=== PATIENT | female | born 1935 | race Caucasian/White ===

== ENCOUNTER 2017-05-26 16:38 | Inpatient (IN) | payer MEDICARE, OTHER, MEDICAID ==
[~2017-05-26] VITALS: Ht 152.4 cm; Wt 54.6 kg
--- NOTE | ~2017-05-26 | WRIGHTHP ---
[place], [place] PATIENT HISTORY AND PHYSICAL EXAM NAME: [facility]EVENSON [facility] [id number] UNIT #: [id number] ROOM: 424 DOCTOR: DUGLAS METCALF MD BIRTHDATE: [birth year] DOS: 05/27/2017 HISTORY OF PRESENT ILLNESS: The patient is 81-year-old. She is a resident of [facility], was brought in with complaints of nausea and emesis. The patient had some pizza before this, but she has multiple emesis to the point that I advised the patient to be sent out to the Emergency Room. She denies having any chest pains, palpitations, does not have any fever or chills. When she arrived, she was also found to be quite hypoxic. This morning, the patient is doing well without any complaints. She also has diuresed nicely with the Lasix that was given. She denies having any chest pains, palpitations, does not have any nausea, any emesis. Does not have any fever or chills. PAST MEDICAL HISTORY: Significant for: 1. Alzheimer's dementia, late onset. 2. COPD. 3. Benign hypertension. 4. History of nicotine abuse. 5. Generalized anxiety disorder. MEDICATIONS: That she is on currently are: Levothyroxine 25 mcg, diltiazem 120, Namenda 28, rivastigmine 13.3 and breathing treatments p.r.n. She used to be on oxygen, but no longer on it. PHYSICAL EXAMINATION: GENERAL: She is awake and alert, pleasant, but answers questions appropriately, but she does have periods of confusion, which is her baseline. VITAL SIGNS: Blood pressure is 123/87, pulse of 95, respirations 20, temperature 97.8. LUNGS: Diminished breath sounds. No rales heard this morning. HEART: Regular. ABDOMEN: Obese, soft, nontender. Bowel sounds present. EXTREMITIES: Without any edema. ASSESSMENT AND PLAN: 1. The patient admitted with nausea, emesis, possibly from viral gastroenteritis. Rapid flu was negative. The patient was given IV fluids in the Emergency Room. 2. Chronic obstructive pulmonary disease with mild exacerbation and resulting in acute hypoxic respiratory failure. As soon as she was brought to the floor, she was given diuretics, breathing treatments and oxygen supplementation. Chest x-ray shows atelectasis bilaterally, could be hiding pneumonia. A CT of the chest is pending. 3. Colitis seen on a CT scan of the abdomen. The patient seems to be doing well this morning. I did place on Flagyl, but since she is no longer having any of GI complaints, I will be starting on a diet today. [place], [place] PATIENT HISTORY AND PHYSICAL EXAM NAME: CLEMENCIA STEVENSON UNIT #: [id number] ROOM: 424 DOCTOR: DUGLAS METCALF MD BIRTHDATE: [birth year] DUGLAS METCALF MD CM:HISPHYS:PATIENT HISTORY AND PHYSICAL EXAMINATION 1 1 DUGLAS METCALF MD 05/27/17 0911 interface
--- NOTE | ~2017-05-26 | DS ---
[place], [place] DISCHARGE SUMMARY NAME: CLEMENCIA STEVENSON UNIT #: [id number] ROOM: 424 DOCTOR: DUGLAS METCALF MD BIRTHDATE: [birth year] DOS: 05/29/2017 DIAGNOSES: 1. Acute exacerbation of chronic obstructive pulmonary disease. 2. Acute hypoxic respiratory failure. 3. Colitis, possible from viral gastroenteritis. 4. Alzheimer dementia, late onset. 5. Benign hypertension. 6. History of nicotine abuse. 7. Generalized anxiety disorder. DISCHARGE MEDICATIONS: Namenda 28 daily, vitamin D 1000 units daily, Exelon 13.3 mg patch daily, milk of mag 30 mL daily p.r.n., Cardizem 120 daily, Symbicort 80 one puff twice a day, DuoNeb q.12h. p.r.n., levothyroxine 25 mcg daily, Tylenol 650 q hours p.r.n., oxygen 2 liters nasal cannula, prednisone, Medrol Dosepak and Flagyl 500 t.i.d. for 5 more days. HOSPITAL COURSE: The patient is 81 years old, presents with severe nausea, emesis, minimal amount of diarrhea. She was hypoxic when she arrived to the emergency room. Please refer H and P. After admission, the patient was placed on IV Flagyl, IV fluids, IV steroids, breathing treatments and oxygen supplementation. Her symptoms have all resolved. So today, the patient will be discharged back to the shelter. She will be followed up as an outpatient. DUGLAS METCALF MD CM:DISCHARG [phone] DUGLAS METCALF MD 05/29/17 0902 interface
--- NOTE | ~2017-05-26 | PR ---
[place], [place] PROGRESS NOTE NAME: CLEMENCIA STEVENSON UNIT #: [id number] ROOM: 424 DOCTOR: DUGLAS METCALF MD BIRTHDATE: [birth year] DOS: SUBJECTIVE: The patient is resting comfortably, does not have any complaints. OBJECTIVE: VITAL SIGNS: Graphic trend shows blood pressure of 119/68, pulse 103, respirations 18, temperature 98.0. LUNGS: Clear. HEART: Regular. ABDOMEN: Soft. EXTREMITIES: Without any edema. ASSESSMENT AND PLAN: 1. Acute colitis, on IV antibiotics. The patient is no longer symptomatic. There is resolution of nausea and emesis and abdominal pain. 2. Acute hypoxic respiratory failure from underlying chronic obstructive pulmonary disease exacerbation. The patient has been placed on steroids and antibiotics. The plan is to discharge her to home to [place] tomorrow. DUGLAS METCALF MD CM:PNTRANS [id number] DUGLAS METCALF MD 05/28/17 0952 interface
--- NOTE | ~2017-05-26 | PR ---
[place], [place] PROGRESS NOTE NAME: CLEMENCIA STEVENSON UNIT #: [id number] ROOM: 424 DOCTOR: DUGLAS METCALF MD BIRTHDATE: [birth year] DOS: SUBJECTIVE: The patient is doing fine. She does not have any complaints. She is eating well. She is no longer hypoxic. OBJECTIVE: VITAL SIGNS: Blood pressure is 99/62, pulse of 99, respirations 18, temperature 98.5. LUNGS: Clear. HEART: Regular. ABDOMEN: Soft, scaphoid, nontender. EXTREMITIES: Without any edema. LABORATORY DATA: Echocardiogram showed normal LV function, ejection fraction of 70%, grade 1 diastolic dysfunction, trace mitral regurg. ASSESSMENT AND PLAN: 1. Acute respiratory failure, hypoxic. The patient is stable. 2. Chronic obstructive pulmonary disease with mild exacerbation, improved. 3. Abdominal pain with nausea, emesis, possibly from colitis, on Flagyl. She is asymptomatic now. We plan to discharge her back to the half-way. DUGLAS METCALF MD CM:PNTRANS [id number] DUGLAS METCALF MD 05/29/17 0932 interface
[~2017-05-26 16:38] MED LIST: ALBUTEROL 3 ML 33 ML NEB; ATARAX,VISTARIL50 MG PO; ATIVAN0.5 MG PO; B12,B-12,B 12500 MC1 PO; BACTRIM DS 8001 TA1 PO; BIAXIN500 MG PO; CIPRO500 MG PO; DEPAKOTE ER500 MG PO; DUONEB 3 MG/3 ML3 M1 NEB; Depakote Sprin125 MG PO; EXELON13.3 MG/21 TD; EXELON3 MG PO; EXELON4.6 MG/24 T; HYDROXYZINE PAM25 M1 PO; INDERAL LA60 M1 PO; K-TAB10 MEQ PO; LEVAQUIN250 M1 PO; MAPAP325 MG PO; MEDROL DOSEPAK4 MG PO; MELOXICAM15 MG PO; METHIMAZOLE10 MG PO; METHIMAZOLE5 M1 PO; MIRTAZAPINE15 M2 PO; NAMENDA XR28 M1 PO; NAMENDA-7 PO; NAMENDA10 MG PO; PAXIL10 MG PO; PREDNISONE5 MG PO; PROVENTIL0.09 MG/AC IH; PYRIDIUM200 MG PO; REMERON15 M2 PO; SEROQUEL50 MG PO; TAPAZOLE5 MG PO; TRAMADOL HCL50 MG PO; VENTOLIN 02.5 MG/3 M INH; VISTARIL25 MG PO; VITAMIN B-12500 MC2 PO; VITAMIN B121000 MC1 PO; VITAMIN D31000 UNIT PO
[2017-05-26 16:58] VITALS: BP 163/89
[2017-05-26 17:22] LABS: BASO % 0.5 % (0.0-1.0); HEMATOCRIT 42.7 % (37.0-47.0); HEMOGLOBIN 13.6 g/dl (12.0-16.0); LYMPH # 0.7 10*3/uL (1.3-4.4); MEAN CORPUSCULAR HGB 28.3 pg (27.0-31.0); MEAN CORPUSCULAR HGB CONC 31.9 g/dl (33.0-37.0); MEAN PLATELET VOLUME 9.7 fl (9.6-12.3); MONO # 0.2 10*3/uL (0.1-1.0); MONO % 2.7 % (3.0-9.0); NEUT % 87.3 % (47.0-73.0); PLATELET COUNT AUTOMATED 288 10*3/uL (130-400); RED CELL DISTRI WIDTH 13.7 % (0-14.5)
[2017-05-26 17:34] LABS: ACT PARTIAL THROMBO TIME 22.7 SECONDS (20.8-31.5)
[2017-05-26 17:41] LABS: ALBUMIN 3.5 gm/dl (3.1-4.5); ALKALINE PHOSPHATASE 94 U/L (45-117); BUN 11 mg/dl (7-24); CHLORIDE 105 mmol/L (98-107); CREATININE 0.84 mg/dL (0.55-1.02); LIPASE 258 U/L (73-393); SGOT/AST 20 IU/L (3-35); SGPT/ALT 19 U/L (12-78); SODIUM 141 mmol/L (136-145); TOTAL PROTEIN 7.9 gm/dL (6.4-8.2)
[2017-05-26 17:44] LABS: TROPONIN I < 0.015 ng/ml (<0.045)
[2017-05-26 19:54] VITALS: BP 142/74
[2017-05-26 19:54] LABS: BILIRUBIN NEGATIVE (NEGATIVE); BLOOD NEGATIVE (NEGATIVE); CLARITY CLEAR (CLEAR); COLOR YELLOW (YELLOW); GLUCOSE NEGATIVE (NEGATIVE); KETONE 2+ (NEGATIVE); LEUKO ESTERASE NEGATIVE (NEGATIVE); NITRITE NEGATIVE (NEGATIVE); SPECIFIC GRAVITY <= 1.005 (1.005-1.030); UROBILINOGEN 0.2 E.U./dl (0.2-1.0)
[2017-05-26 20:11] LABS: BACTERIA 1+; EPITHELIAL CELLS 0-2; RBC 0-2 rbc/hpf (0-2)
[2017-05-26 22:43] VITALS: BP 159/75
[2017-05-26] MEDS ORDERED: MILK OF MA400 MG/51 PO (23:11)
[2017-05-26] MEDS ORDERED: CARDIZEM CD120 M2 PO (23:12)
[2017-05-26] MEDS ORDERED: SYMB80 INH (23:13)
[2017-05-26] MEDS ORDERED: DUONEB 3 MG/3 ML3 M1 INH (23:15)
[2017-05-26] MEDS ORDERED: SYNTHROID25 MCG PO (23:16)
[2017-05-26] MEDS ORDERED: TYLENOL325 M1 PO (23:18)
[2017-05-26 23:45] VITALS: BP 159/75
[2017-05-27 00:50] VITALS: BP 130/86
[2017-05-27 08:00] VITALS: BP 123/87
[2017-05-27 12:00] VITALS: BP 135/64
[2017-05-27 16:00] VITALS: BP 116/78
[2017-05-27 20:00] VITALS: BP 122/71
[2017-05-28] VITALS: BP 112/57
[2017-05-28 08:00] VITALS: BP 119/68
[2017-05-28 12:00] VITALS: BP 136/62
[2017-05-28 16:00] VITALS: BP 113/56
[2017-05-28 20:00] VITALS: BP 121/66
[2017-05-29] VITALS: BP 99/62
[2017-05-29 08:00] VITALS: BP 124/64
[2017-05-29 12:00] VITALS: BP 136/56
== END 2017-05-29 14:35 | DRG 391 ==
LOC: ED 16:38 → EDHOLD 21:30 → 4E 21:30
PROVIDERS: Emergency Medicine
DX: A08.4 Viral intestinal infection, unspecified (principal); J96.01 Acute respiratory failure with hypoxia; J44.1 Chronic obstructive pulmonary disease with (acute) exacerbation; G30.9 Alzheimer's disease, unspecified; F02.80 Dementia in other diseases classified elsewhere, unspecified severity, without behavioral disturbance, psychotic disturbance, mood disturbance, and anxiety; Z66 Do not resuscitate; Z51.5 Encounter for palliative care; I10 Essential (primary) hypertension; F41.1 Generalized anxiety disorder; M19.90 Unspecified osteoarthritis, unspecified site; K21.9 Gastro-esophageal reflux disease without esophagitis; Z90.49 Acquired absence of other specified parts of digestive tract; Z87.891 Personal history of nicotine dependence; Z79.899 Other long term (current) drug therapy; Z82.3 Family history of stroke; Z98.49 Cataract extraction status, unspecified eye

== ENCOUNTER 2017-11-24 16:50 | Inpatient (IN) | payer MEDICARE, OTHER, MEDICAID ==
[~2017-11-24] VITALS: Ht 152 cm; Wt 57.2 kg
--- NOTE | ~2017-11-24 | EKG ---
[place], [place] ELECTROCARDIOGRAM REPORT NAME: CLEMENCIA STEVENSON UNIT #: [id number] ROOM: 408 DOCTOR: LEONARD DRAFT REPORT BIRTHDATE: [birth year] [facility] Test Date: 2017-11-24 Test Time: 17:31:26 Pat Name: CLEMENCIA STEVENSON Department: Room: 408 Gender: F Customs Director: : 1935 Requested By: JA MCKINNON Order Number: [id number] Reading MD: Arelis Prasad MD Measurements Intervals [place] Rate: 59 P: -9 VA: 145 QRS: 25 QRSD: 76 T: 40 QT: 435 QTc: 431 Interpretive Statements Sinus rhythm Atrial premature complex Electronically Signed On 11-25-2017 11:12:10 PDT by Arelis Prasad MD CM:EKGRPT:ELECTROCARDIOGRAM REPORT [id number] JA MCKINNON EPIPHANY DRAFT REPORT JA MCKINNON
--- NOTE | ~2017-11-24 | PR ---
[place], [place] PROGRESS NOTE [id number] UN[facility] #: [id number] ROOM: 408 DOCTOR: RADHA LLOYD MD,JOAQUIN BIRTHDATE: [birth year] DOS: 11/26/2017 SUBJECTIVE: She was noted comfortable, resting without any acute distress. Denies symptoms of acute chest pain. The patient denied any symptoms of abdominal pain, nausea, vomiting at the present time. Denies symptoms of hemoptysis. REVIEW OF SYSTEMS: Very limited because of history of dementia. OBJECTIVE: VITAL SIGNS: For the patient which has been recorded showed normal temperature, respiratory rate 20, heart rate 70, blood pressure 120/50-120/59, pulse oxygen saturation noted as 98% saturation on 2 liter nasal cannula. HEAD, EYES, EARS, NOSE, AND THROAT: Examination shows head was atraumatic. Eyes nonicterus. NECK: Supple. CARDIOVASCULAR SYSTEM: S1, S2 is audible. LUNGS: The patient was noted without any wheezing or crackles at present time. ABDOMEN: Soft, nontender. Bowel sounds present. EXTREMITIES: The patient was noted without any acute edema. SKIN: Visible skin. No lesions or rashes. MUSCULOSKELETAL: Noted without any acute deformities. CENTRAL NERVOUS SYSTEM: There were no focal deficits. LABORATORY DATA: CT scan of the chest that was done yesterday. CT of the chest noted without any evidence of acute pulmonary embolism. Small area of atelectasis noted right lower lobe as well as the findings of a 3.5 mm nodule in the right lower lobe that appears to be noted stable since CT scan in 2004. Scattered areas of patchy infiltration most likely would be considered appeared to be of pulmonary fibrosis; however, the acute infiltration in the right lower lobe cannot be completely excluded. IMPRESSION: 1. The patient will be currently admitted to the hospital. The patient was noted with findings of chest pain. Ultrasound of the gallbladder was done, which shows evidence of cholelithiasis without evidence of acute cholecystitis. Possibility of acute pneumonia in the right lower lobe cannot be completely excluded. 2. 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 3. History of dementia. PLAN OF MANAGEMENT: Discontinue the broad-spectrum intravenous antibiotics, replace it with the usual antibiotics for the community-acquired infection with use of the Levaquin should suffice. Other plan of management to be continued monitoring the chest closely. Pain management is already addressed and done by the primary care attending. Usual care, other supportive therapy, plan of management and care plan. Additional treatment changes will be recommended based on progression of the illness. [place], [place] PROGRESS NOTE NAME: CLEMENCIA STEVENSON UNIT #: [id number] ROOM: [facility] DOCTOR: JOAQUIN DE LA TORRE MD BIRTHDATE: [birth year] JOAQUIN GARCIA MD CM:PNTRANS [id number] JOAQUIN LLOYD MD 11/26/17 1612 interface
--- NOTE | ~2017-11-24 | CON ---
[place], [place] REPORT OF CONSULTATION NAME: CLEMENCIA STEVENSON UNIT #: [id number] ROOM: 408 DOCTOR: RADHA LLOYD MDJOAQUIN BIRTHDATE: [birth year] DOS: 11/25/2017 PULMONARY CONSULTATION, EVALUATION, AND MANAGEMENT REASON FOR CONSULTATION: To assess the patient for reported acute pneumonia. The history for this patient was noted quite limited at this time and cannot be accurately assessed, possible consideration for dementia. The history of the patient obtained is the review of the medical records for this hospitalization by the other physician, ER assessment and the nursing staff. HISTORY OF PRESENT ILLNESS: This is an 82-year-old female patient, who has been brought to the hospital from the [facility]. The patient has been noted with symptoms of increased shortness breath at about 1430 hours. The patient was given DuoNeb treatment and another treatment was given en route by the EMS. The patient stated symptoms of shortness breath, which has been still present at this time. She does have symptoms of mild cough, but stating she has been noted with pain under the ribcage. The pain has been described nonresolving. The pain was described majorly in the right lower portion of the chest than the left lower chest. The patient also received the Solu-Medrol by the EMS as well. Currently, the patient has been sitting comfortably on the bed at this time. Denies any symptoms of wheezing. REVIEW OF SYSTEMS: The review of the systems for the patient cannot be accurately completed because the patient unable to give any history accurately as she has been asked a question, unable to provide me a reasonable answers to those questions. PAST MEDICAL HISTORY: 1. Noted history of dementia. 2. Essential hypertension. 3. COPD. 4. Hypothyroidism. PAST SURGICAL HISTORY: 1. Appendectomy. 2. Cataract extraction and lens implantation. SOCIAL HISTORY: The patient is stating she is . She denies any tobacco, alcohol or illicit drug use. FAMILY HISTORY: Reported in the past as father 65 years complication of stroke. Mother is with unknown medical illnesses. MEDICATIONS: Per the fpc were reported use of Namenda, vitamin D, Exelon patch, Cardizem-CD, Symbicort, DuoNeb, Spiriva, levothyroxine, and other p.r.n. medications. DRUG ALLERGIES: Reported as no known drug allergies. [place], [place] REPORT OF CONSULTATION NAME: CLEMENCIA STEVENSON UNIT #: [id number] ROOM: 408 DOCTOR: RADHA LLOYD MD,JOAQUIN BIRTHDATE: [birth year] PHYSICAL EXAMINATION: GENERAL: This is an 82-year-old female patient, who has been currently noted to be awake and alert, sitting on the bed this morning. Height for the patient recorded as 5 feet, weight of 126 pounds, BMI 24. VITAL SIGNS: Normal temperature, respiratory rate of 20-14, heart rate of 72-80, blood pressure 119/59, 136/61. Pulse oxygen saturation of the patient recorded on 2 liters 95% saturation. On admission on 8 liters oxygen supplementation simple face mask was 100% saturation. HEENT: Examination shows head was atraumatic. Eyes nonicterus. NECK: Supple. CARDIOVASCULAR: S1, S2 was audible. LUNGS: The patient was noted essentially somewhat decreased breath sounds bilaterally. There were no wheezing or crackles heard. ABDOMEN: Soft, nontender. Bowel sounds present. EXTREMITIES: Without any acute edema. VISIBLE SKIN: No lesions or rashes. LABORATORY DATA: CBC of the patient on 11/24/2017 was noted as normal CBC. CMP of the patient was noted at 11/24/2017, normal BUN and creatinine. Troponin first set was normal yesterday. Lactic acid noted as normal. Chest x-ray that was done 2-view in the Emergency Room was noted with a small area of atelectasis in the right middle and right lower lobe and the lingula cannot be excluded. There were no gross area of pulmonary infiltration. The patient had a CT scan of the abdomen and pelvis, which was done for this patient as well for assessment right flank pain reported in the Emergency Room. The findings of the patient reported by the radiologist as somewhat limited examination performed without contrast, [id number], hiatal hernia was noted with a small basilar areas of atelectasis without any acute infiltration. CBC of the patient this morning, still noted as normal. Urine culture was noted as negative. CMP for the patient was noted as normal this morning. IMPRESSION: 1. The patient will be currently admitted to the hospital. The patient with symptoms of shortness of breath, presumed diagnosis of chronic obstructive pulmonary disease, but there was no wheezing noted at the present time. She has been given Solu-Medrol, bronchodilator and other treatment. 2. History of chronic dementia, hypothyroidism and essential hypertension reported. PLAN OF TREATMENT: The symptoms of the patient at this time cannot be explained fully with the patient's current history and physical examination. I will be ordering CT scan of the chest for this patient to rule out acute pulmonary embolism as one of the differential diagnosis. In the meantime, continue with the patient's current plan of management at this time as started for this patient presumed COPD exacerbation. Other supportive therapy, plan of management for the patient as well. Additional treatment changes will be ordered based on the progression of her illness. There was no evidence of acute pneumonia was noted. [place], [place] REPORT OF CONSULTATION NAME: CLEMENCIA STEVENSON UNIT #: [id number] ROOM: [facility] DOCTOR: JOAQUIN DE LA TORRE MD BIRTHDATE: [birth year] JOAQUIN GARCIA MD CM:CONSTR:REPORT OF CONSULTATION 1158 12/06/17 0923 interface
--- NOTE | ~2017-11-24 | DS ---
[place], [place] DISCHARGE SUMMARY NAME: CLEMENCIA STEVENSON [facility] #: [id number] UNIT #: [id number] ROOM: 408 DOCTOR: JOY DEGROOT MD BIRTHDATE: [birth year] DOS: 11/26/2017 DISCHARGE DIAGNOSES: 1. Gallstone pancreatitis, resolved. 2. Cholelithiasis and choledocholithiasis. The patient refused surgery. 3. Acute right and left upper quadrant pains, resolved. 4. Right upper lobe pneumonia, treated. 5. Late onset Alzheimer's type dementia. 6. Centrilobular emphysema. 7. Benign essential hypertension. 8. Chronic constipation. 9. Adult failure to thrive and old age. 10. Hypothyroidism. 11. 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 12. History of nicotine smoke dependence. HOSPITAL COURSE: The patient presented to the Emergency Department with severe right and left upper quadrant pains, nausea and she was found to have right upper lung pneumonia with chest x-ray. The patient's lipase level was elevated and she was kept n.p.o. for acute pancreatitis. Ultrasound of the gallbladder showed cholelithiasis. The patient apparently had choledocholithiasis, which resulted in elevation of lipase level and pancreatitis. This was followed by elevation of liver enzymes. The patient is prone to having recurrent choledocholithiasis and she was asked to get a cholecystectomy, but the patient had refused. It has been explained to the patient about the complications of choledocholithiasis and gallstones and she understands. The patient was also seen by Dr. Funes, the surgeon and recommended surgery. The patient appears to be competent to make decisions in relation to her health and she lives at home. Right upper lung pneumonia, treated with antibiotics. Dr. Ruiz, the junior media buyer was consulted and helped with the patient's management. Acute exacerbation of COPD, treated with bronchodilators and corticosteroids, improved. Late onset Alzheimer's type dementia. The patient is quite alert and oriented. Benign essential hypertension, treated and controlled. Chronic constipation, being treated. The patient is moving her bowels. Adult failure to thrive and old age. The patient worked with Physical Therapy. Hypothyroidism, replaced with levothyroxine. The patient wants to be discharged to home against medical advice. I will let her eat food and water her until 6:00 p.m. to make sure that she is tolerating diet before she goes home. Otherwise, I would have at least kept her until [place], [place] DISCHARGE SUMMARY NAME: CLEMENCIA STEVENSON UNIT #: [id number] ROOM: 408 DOCTOR: JOY DEGROOT MD BIRTHDATE: [birth year] tomorrow and also I am recommending that she should undergo cholecystectomy. LABORATORY DATA: CT angiogram negative for pulmonary embolism, old stable nodule. No leukocytosis. Ultrasound of the gallbladder is showing cholelithiasis. DISCHARGE MANAGEMENT: Levothyroxine 25 mcg daily, Colace 100 mg b.i.d., lactulose 10 grams before meals, MiraLax 17 grams daily, memantine 10 mg b.i.d., rivastigmine 13.3 mg daily, sennoside 8.6 mg daily, polyethylene eyedrops 5 times daily as needed to both eyes, diltiazem CD 120 mg daily, Dulera twice a day. FOLLOWUP: With her PCP this week. JOY DEGROOT MD CM:SANDER [id number] JOY DEGROOT MD 11/26/172135 interface
--- NOTE | ~2017-11-24 | WRIGHTHP ---
[place], [place] PATIENT HISTORY AND PHYSICAL EXAM [id number] UNIT #: [id number] ROOM: 408 DOCTOR: JOY DEGROOT MD BIRTHDATE: [birth year] DOS: 11/24/2017 HISTORY OF PRESENT ILLNESS: The patient is an 82-year-old female with a past medical history of: 1. COPD. 2. Late onset Alzheimer's type dementia. 3. Benign essential hypertension. 4. History of nicotine smoke dependence. 5. Generalized anxiety disorder. 6. History of moderate to severe depression, recurrent. The patient [facility] with complaints of increased shortness of breath and right and left upper quadrant abdominal pains with nausea. After initial treatment with Solu-Medrol, patient was found to have pneumonic lung infiltrates and elevation of lipase compatible with acute pancreatitis and she was recommended for admission and further management. Noncontrast CT of the abdomen and pelvis were normal. After admission and being kept n.p.o., patient is feeling much better, her abdominal pains and nausea has resolved. No chest pains. Her breathing has improved. No dizziness or fainting episodes. REVIEW OF SYSTEMS: LUNGS: Increasing shortness of breath. GASTROINTESTINAL: No nausea or vomiting. CARDIOVASCULAR SYSTEM: No chest pains or palpitations. ALLERGIES: No known drug allergies. FAMILY HISTORY: Noncontributory. SOCIAL HISTORY: History of nicotine smoke dependence. Denies any alcohol or drug abuse. HOME MEDICATIONS: MiraLax, diltiazem, Symbicort, Tylenol, vitamin D, Colace, lactulose, levothyroxine, rivastigmine, Spiriva, Senokot, memantine, sennosides, DuoNeb. ALLERGIES: No known drug allergies. PHYSICAL EXAMINATION: GENERAL: Alert, oriented times 3. HEENT AND NECK: Extraocular movements are intact. Sclerae are anicteric. Oral mucosa is moist and clean. No obvious facial weakness. Neck is supple without any lymphadenopathy. No thyromegaly. No JVD. No carotid arterial bruits. LUNGS: Clear to auscultation. No wheezing. No rhonchi. CARDIOVASCULAR SYSTEM: Heart rate is regular in rate and rhythm. S1 and S2 normally audible. No significant murmur or any other abnormal cardiac sounds. ABDOMEN: Soft, nontender. No obvious organomegaly. Bowel sounds are present. No obvious herniation. Some epigastric discomfort on deep palpation. EXTREMITIES: Without significant cyanosis or edema. Warm to touch. [place], [place] PATIENT HISTORY AND PHYSICAL EXAM NAME: CLEMENCIA STEVENSON UNIT #: [id number] ROOM: [facility] DOCTOR: JOY DEGROOT MD BIRTHDATE: [birth year] CENTRAL NERVOUS SYSTEM: Alert and oriented x 3. Cranial nerves II-XII are intact. Speech is normal. The patient is able to move all extremities. Normal muscle strength. Deep tendon reflexes are equal on both sides. Plantars were downgoing. LABORATORY DATA: Elevation of AST and ALT to 319 and 268. Lipase has improved to 438 from 3200 yesterday. IMPRESSION: 1. The patient with acute pancreatitis with upper abdominal pain, right upper quadrant and left upper quadrant pains with epigastric tenderness, possibly from choledocholithiasis. I am ordering an ultrasound of the gallbladder. Lipase has improved, but now liver enzymes have increased. Dr. Vallejo, the sandwich counter attendant, is on consult. 2. Right upper lung pneumonia, being treated with antibiotics. Dr. Ruiz has been consulted for opinion and help with management. 3. Late onset Alzheimer's type dementia. I will continue rivastigmine and memantine. 4. Centrilobular emphysema, treated with bronchodilators. 5. Benign essential hypertension. The patient remains on Cardizem. Blood pressures are being monitored. 6. Chronic constipation, treated with multiple medications including Colace, lactulose, MiraLax, sennosides, which have all been continued. 7. Adult failure to thrive and old age. The patient started on physical therapy. 8. Hypothyroidism, replaced with levothyroxine. JOY DEGROOT MD CM:HISPHYS:PATIENT HISTORY AND PHYSICAL EXAMINATION 1110 1219 JOY DEGROOT MD 11/25/17 1435 interface
[2017-11-24 16:50] VITALS: BP 140/56
[~2017-11-24 16:50] MED LIST changes: +CARDIZEM CD120 M2 PO; +DUONEB 3 MG/3 ML3 M1 INH; +MILK OF MA400 MG/51 PO; +SYMB80 INH; +SYNTHROID25 MCG PO; +TYLENOL325 M1 PO
[2017-11-24] MEDS ORDERED: SENNA-LAX8.6 MG PO (17:09)
[2017-11-24] MEDS ORDERED: ARTIFICIAL TEA1 EACH OP (17:11)
[2017-11-24] MEDS ORDERED: DOCUSATE SODIU100 M2 PO (17:12)
[2017-11-24] MEDS ORDERED: SPIRIVA18 MCG PO (17:12)
[2017-11-24 17:39] LABS: BASO % 0.3 % (0.0-1.0); EOS # 0.1 10*3/uL (0.0-0.4); EOS % 1.4 % (1.0-4.0); HEMATOCRIT 45.1 % (37.0-47.0); HEMOGLOBIN 14.2 g/dl (12.0-16.0); LYMPH # 2.3 10*3/uL (1.3-4.4); LYMPH % 25.9 % (27.0-41.0); MEAN CELL VOLUME 91.5 fl (81.0-99.0); MEAN CORPUSCULAR HGB 28.8 pg (27.0-31.0); MEAN CORPUSCULAR HGB CONC 31.5 g/dl (33.0-37.0); MEAN PLATELET VOLUME 9.8 fl (9.6-12.3); MONO # 0.6 10*3/uL (0.1-1.0); MONO % 6.5 % (3.0-9.0); NEUT # 5.8 10*3/uL (2.3-7.9); NEUT % 65.6 % (47.0-73.0); PLATELET COUNT AUTOMATED 222 10*3/uL (130-400); RED BLOOD COUNT 4.93 10*6/uL (4.10-5.10); RED CELL DISTRI WIDTH 14.2 % (0-14.5); WHITE BLOOD COUNT 8.8 10*3/uL (4.8-10.8)
[2017-11-24 17:57] LABS: ALBUMIN 3.7 gm/dl (3.1-4.5); ALKALINE PHOSPHATASE 72 U/L (45-117); BUN 12 mg/dl (7-24); CHLORIDE 107 mmol/L (98-107); CREATININE 1.01 mg/dL (0.55-1.02); POTASSIUM 3.8 mmol/L (3.5-5.1); SGOT/AST 26 IU/L (3-35); SGPT/ALT 21 U/L (12-78); SODIUM 144 mmol/L (136-145); TOTAL PROTEIN 7.7 gm/dL (6.4-8.2)
[2017-11-24 18:00] LABS: LIPASE 3188 U/L (73-393); TROPONIN I < 0.015 ng/ml (<0.045)
[2017-11-24 18:36] LABS: BILIRUBIN NEGATIVE (NEGATIVE); BLOOD NEGATIVE (NEGATIVE); CLARITY CLEAR (CLEAR); COLOR YELLOW (YELLOW); GLUCOSE NEGATIVE (NEGATIVE); KETONE 1+ (NEGATIVE); LEUKO ESTERASE NEGATIVE (NEGATIVE); NITRITE NEGATIVE (NEGATIVE); SPECIFIC GRAVITY >= 1.030 (1.005-1.030); UROBILINOGEN 0.2 E.U./dl (0.2-1.0)
[2017-11-24 18:44] LABS: RBC 0-2 rbc/hpf (0-2)
[2017-11-24 18:45] LABS: BACTERIA 2+; MUCOUS TRACE
[2017-11-24 20:06] VITALS: BP 149/47
[2017-11-24 21:00] VITALS: BP 136/64
[2017-11-24] MEDS ORDERED: ENULOSE10 GM/151 PO (21:38)
[2017-11-24] MEDS ORDERED: MIRALAX17 GM PO (21:39)
[2017-11-25] VITALS: BP 106/63
[2017-11-25 06:47] LABS: HEMATOCRIT 39.6 % (37.0-47.0); HEMOGLOBIN 12.3 g/dl (12.0-16.0); LYMPH # 0.5 10*3/uL (1.3-4.4); LYMPH % 8.3 % (27.0-41.0); MEAN CELL VOLUME 92.1 fl (81.0-99.0); MEAN CORPUSCULAR HGB 28.6 pg (27.0-31.0); MEAN CORPUSCULAR HGB CONC 31.1 g/dl (33.0-37.0); MEAN PLATELET VOLUME 10.1 fl (9.6-12.3); MONO # 0.3 10*3/uL (0.1-1.0); MONO % 5.6 % (3.0-9.0); NEUT # 5.1 10*3/uL (2.3-7.9); NEUT % 85.8 % (47.0-73.0); PLATELET COUNT AUTOMATED 182 10*3/uL (130-400); RED CELL DISTRI WIDTH 14.2 % (0-14.5); WHITE BLOOD COUNT 5.9 10*3/uL (4.8-10.8)
[2017-11-25 07:30] LABS: CHLORIDE 110 mmol/L (98-107); POTASSIUM 4.4 mmol/L (3.5-5.1); SODIUM 142 mmol/L (136-145)
[2017-11-25 07:39] LABS: ALKALINE PHOSPHATASE 77 U/L (45-117); BUN 11 mg/dl (7-24); CREATININE 0.97 mg/dL (0.55-1.02); LIPASE 438 U/L (73-393); SGOT/AST 319 IU/L (3-35); SGPT/ALT 268 U/L (12-78); TOTAL PROTEIN 6.5 gm/dL (6.4-8.2)
[2017-11-25 08:00] VITALS: BP 119/59
[2017-11-25 12:00] VITALS: BP 126/61
[2017-11-25 15:53] VITALS: BP 129/63
[2017-11-25 20:00] VITALS: BP 134/62
[2017-11-26] VITALS: BP 121/59
[2017-11-26 06:44] LABS: BASO # 0.1 10*3/uL (0.0-0.1); BASO % 0.6 % (0.0-1.0); EOS # 0.1 10*3/uL (0.0-0.4); EOS % 1.1 % (1.0-4.0); HEMATOCRIT 36.1 % (37.0-47.0); HEMOGLOBIN 11.4 g/dl (12.0-16.0); LYMPH # 0.9 10*3/uL (1.3-4.4); LYMPH % 9.4 % (27.0-41.0); MEAN CORPUSCULAR HGB 28.4 pg (27.0-31.0); MEAN CORPUSCULAR HGB CONC 31.6 g/dl (33.0-37.0); MEAN PLATELET VOLUME 10.3 fl (9.6-12.3); MONO # 0.8 10*3/uL (0.1-1.0); MONO % 7.8 % (3.0-9.0); NEUT # 7.9 10*3/uL (2.3-7.9); NEUT % 80.7 % (47.0-73.0); PLATELET COUNT AUTOMATED 188 10*3/uL (130-400); RED BLOOD COUNT 4.01 10*6/uL (4.10-5.10); RED CELL DISTRI WIDTH 14.4 % (0-14.5); WHITE BLOOD COUNT 9.8 10*3/uL (4.8-10.8)
[2017-11-26 08:00] VITALS: BP 124/52
[2017-11-26 12:00] VITALS: BP 116/77; BP 140/88
[2017-11-26 16:00] VITALS: BP 141/70
[2017-12-17] MEDS ORDERED: Ipratropium Brom3 ML INH (12:24)
[2017-12-17] MEDS ORDERED: SENNA LAX8.6 M1 PO (12:25)
[2017-12-17] MEDS ORDERED: VITAMIN D31000 UNI1 PO (12:26)
[2017-12-17] MEDS ORDERED: SPIRIVA -- 3018 MCG INH (12:26)
[2017-12-17] MEDS ORDERED: RIVASTIGMINE1 EAC2 T (12:27)
[2017-12-17] MEDS ORDERED: GLYCOLAX119 GM PO (12:28)
== END 2017-11-26 19:15 | DRG 438 ==
LOC: ED 16:50 → EDHOLD 19:40 → 4E 19:40
PROVIDERS: Internal Medicine; Nurse Practitioner Family
DX: K85.10 Biliary acute pancreatitis without necrosis or infection (principal); J18.1 Lobar pneumonia, unspecified organism; F33.2 Major depressive disorder, recurrent severe without psychotic features; J44.0 Chronic obstructive pulmonary disease with (acute) lower respiratory infection; J44.1 Chronic obstructive pulmonary disease with (acute) exacerbation; G30.1 Alzheimer's disease with late onset; K80.70 Calculus of gallbladder and bile duct without cholecystitis without obstruction; F02.80 Dementia in other diseases classified elsewhere, unspecified severity, without behavioral disturbance, psychotic disturbance, mood disturbance, and anxiety; Z53.29 Procedure and treatment not carried out because of patient's decision for other reasons; R62.7 Adult failure to thrive; I10 Essential (primary) hypertension; E03.9 Hypothyroidism, unspecified; K59.09 Other constipation; F41.1 Generalized anxiety disorder; K21.9 Gastro-esophageal reflux disease without esophagitis; M19.012 Primary osteoarthritis, left shoulder; E05.90 Thyrotoxicosis, unspecified without thyrotoxic crisis or storm; Z98.41 Cataract extraction status, right eye; Z82.3 Family history of stroke; Z82.49 Family history of ischemic heart disease and other diseases of the circulatory system; Z79.899 Other long term (current) drug therapy; Z87.440 Personal history of urinary (tract) infections

== ENCOUNTER → 2018-01-04 | Day surgery (SDC) | payer MEDICARE, OTHER, MEDICAID ==
[~2018-01-04] VITALS: Ht 152.4 cm; Wt 57.2 kg
[~2018-01-04] MED LIST changes: +ARTIFICIAL TEA1 EACH OP; +DOCUSATE SODIU100 M2 PO; +ENULOSE10 GM/151 PO; +GLYCOLAX119 GM PO; +Ipratropium Brom3 ML INH; +MIRALAX17 GM PO; +NORCO 5-325 TA1 EACH PO; +RIVASTIGMINE1 EAC2 T; +SENNA LAX8.6 M1 PO; +SENNA-LAX8.6 MG PO; +SPIRIVA -- 3018 MCG INH; +SPIRIVA18 MCG PO; +VITAMIN D31000 UNI1 PO
--- NOTE | ~2018-01-04 | O ---
[place], [place] OPERATIVE NOTE [id number] UNIT #: [id number] ROOM: DOCTOR: BRITTON KING MD BIRTHDATE: [birth year] DOS: 01/04/2018 PREOPERATIVE DIAGNOSES: Gallstones, history of gallstone associated pancreatitis. POSTOPERATIVE DIAGNOSES: Gallstones, history of gallstone associated pancreatitis. PROCEDURE: Laparoscopic cholecystectomy. SURGEON: Britton King MD NEURO OPHTHALMOLOGIST: HOLLIS. ANESTHESIA: General with endotracheal intubation. INDICATIONS: This is an 82-year-old lady who has a history of previous gallstone associated pancreatitis, who is here for the above-mentioned procedure. The procedure and its complications were explained to the patient in detail preoperatively. Complications that were discussed included, but were not limited to bleeding, infection, hematoma/seroma/abscess formation, biloma formation, inadvertent injury to common bile duct, injury to surrounding vital structures, incisional hernia formation and prolonged pain. She agreed to proceed. DESCRIPTION OF PROCEDURE: After identifying the patient, the patient was brought to the operating suite and laid in the supine position. After induction of general anesthesia, timeout procedure was called and the parts were then painted and draped in the usual sterile fashion. An incision was made in the subumbilical region in a transverse fashion. The skin and the subcutaneous tissue were incised in the line of the incision. The fascia was incised vertically and 2 stay sutures with 0 Vicryl were taken on either side. The peritoneum was opened and a 12-mm Giancarlo port was introduced into the peritoneal cavity and a pneumoperitoneum was created. Under direct vision, an epigastric incision of 10 mm and two 5-mm incision were made in the right upper quadrant and appropriate size ports were introduced. The gallbladder was retracted superiorly and laterally. The cystic duct and the cystic artery were meticulously dissected until the critical view of safety was obtained and the triangle of Calot was identified. Thereafter, each of the structures were clipped 3 times and cut between the first and the second clip. The gallbladder was then removed from the bed of the gallbladder with the help of electrocautery. It was placed in an EndoCatch bag and removed from the peritoneal cavity and sent for histopathological diagnosis. Thereafter, the liver bed was inspected for any bleeding and there was none seen. At this point, the right upper quadrant and epigastric ports were removed and there was no bleeding seen. The umbilical port was also removed and the pneumoperitoneum was decompressed. The 2 stay sutures were tied together and an additional 0 Vicryl stitch was taken to close the fascial defect. Thereafter, the incisions were injected with 1% plain lidocaine for local anesthesia and they were then approximated with the help of 4-0 Vicryl in a subcuticular running fashion. [place], [place] OPERATIVE NOTE NAME: CLEMENCIA STEVENSON UNIT #: [id number] ROOM: DOCTOR: BRITTON KING MD BIRTHDATE: [birth year] Dressings were given to all the 4 incisions. The patient was extubated uneventfully and brought back to the recovery room in a stable fashion. There were no complications. Dr. Britton King, the attending surgeon, was present throughout the operating case. Britton King MD CM:OPRECORD:OPERATIVE NOTE [id number] BRITTON KING MD 01/04/18 0937 interface
[2018-01-04 07:00] VITALS: BP 154/79
[2018-01-04 08:53] VITALS: BP 153/77
[2018-01-04 09:07] VITALS: BP 150/66
[2018-01-04 09:23] VITALS: BP 134/55
== END | disposition home or self-care (01) ==
LOC: SDC 12-17 11:00
DX: K80.10 Calculus of gallbladder with chronic cholecystitis without obstruction (principal); I10 Essential (primary) hypertension; K21.9 Gastro-esophageal reflux disease without esophagitis; E05.90 Thyrotoxicosis, unspecified without thyrotoxic crisis or storm; M19.90 Unspecified osteoarthritis, unspecified site; J43.9 Emphysema, unspecified; G30.9 Alzheimer's disease, unspecified; F02.80 Dementia in other diseases classified elsewhere, unspecified severity, without behavioral disturbance, psychotic disturbance, mood disturbance, and anxiety; F41.8 Other specified anxiety disorders; Z90.49 Acquired absence of other specified parts of digestive tract; Z79.899 Other long term (current) drug therapy; Z87.891 Personal history of nicotine dependence